=== PATIENT | female | born 1990 | race African-American/Black ===

== ENCOUNTER 2018-11-08 04:28 | Emergency (ER) | payer BC ==
--- NOTE | 2018-11-08 04:55 | PDOC ---
*Physical Exam - Vital Signs 11/08/18 04:53 Patient seen by the advanced practice provider under my direct supervision. Ancillary testing reviewed as necessary. I agree with plan as outlined by the advanced practice provider. *DC/Admit/Observation/Transfer Diagnosis at time of Disposition: Constipation Qualifiers: Constipation type: unspecified constipation type Qualified Code(s): K59.00 - Constipation, unspecified - Discharge Dispostion Disposition: HOME Condition at time of disposition: Fair - Prescriptions Prescriptions: Magnesium Citrate [Citroma -] 195 ml PO ONCE #1 bottle Polyethylene Glycol 3350 [Miralax 119 gm Btl -] 17 gm PO DAILY #1 bottle - Referrals Referrals: Jerry Dickens DO [Staff Physician] - Call tomorrow - Patient Instructions Printed Discharge Instructions: Constipation Additional Instructions: 1. Increase fluids. 2. High fiber diet. 3. Prune juice. 4. Medications as prescribed 5. Please return to the emergency department with any nausea or vomiting, abdominal distention, abdominal pain, or any other concerns. 6. Please consult with your primary care doctor prior to taking any medications , recommend follow up with GI. - Post Discharge Activity Forms/Work/School Notes: Back to Work
[2018-11-08] MEDS ORDERED: SODIUM PHOSPHATE/NA BIPHOS 133 ML ENEMA PR ONE (05:10)
[2018-11-08 05:13] VITALS: TEMP 97.7; BMI 18.9
--- NOTE | 2018-11-08 05:25 | PDOC ---
History of Present Illness - General Chief Complaint: Constipation Stated Complaint: ABDOMINAL PAIN Time Seen by Provider: 11/08/18 04:48 History Source: Patient - History of Present Illness Initial Comments: 11/08/18 05:07 28 year old female with history of constipation c/o lower abdominal pain and no BM x 2 -3 weeks. patient started taking Miralax at home with no bowel movement. denies fever/ chills, anorexia, nausea/ vomiting, urinary symptoms. Past History - Past Medical History Allergies/Adverse Reactions: Allergies Allergy/AdvReac Type Severity Reaction Status Date / Time No Known Allergies Allergy Verified 11/08/18 05:35 Home Medications: Ambulatory Orders Magnesium Citrate [Citroma -] 195 ml PO ONCE #1 bottle 11/08/18 Polyethylene Glycol 3350 [Miralax 119 gm Btl -] 17 gm PO DAILY #1 bottle Review of Systems - Review of Systems Able to Perform ROS?: Yes Is the patient limited [place] proficient: No Constitutional: No: Symptoms Reported, See HPI, Chills, Diaphoresis, Fever, Loss of Appetite, Malaise, Night Sweats, Weakness, Weight Stable, Unintentional Wgt. Loss, Unexplained wgt Loss, Other ABD/GI: Yes: Constipated, Abdominal cramping. No: Symptoms Reported, See HPI, Abdominal Distended, Abd. Pain w/ defecation, Blood Streaked Bowels, Diarrhea, Difficulty Swallowing, Nausea, Poor Appetite, Poor Fluid Intake, Rectal Bleeding , Vomiting, Indigestion, Tarry Stools, Other : No: Symptoms Reported, See HPI, Burning, Dysuria, Discharge, Frequency, Flank Pain, Hematuria, Incontinence, Pain, Urgency, Testicular Mass, Testicular Swelling, Lesions, Testicular Pain, Other Integumentary: No: Symptoms Reported, See HPI, Bruising, Change in Color, Change in Hair/Nails, Dryness, Erythema, Flushing, Lesions, Lumps, Pallor, Pruritus, Rash, Sweating, Other *Physical Exam - Vital Signs 11/08/18 05:53 Last Vital Signs Temp Pulse Resp BP Pulse Ox 97.7 F 82 18 116/84 98 11/08/18 04:28 11/08/18 04:28 11/08/18 04:28 11/08/18 04:28 11/08/18 04:28 - Physical Exam General Appearance: Yes: Appropriately Dressed Respiratory/Chest: positive: Lungs Clear, Normal Breath Sounds Gastrointestinal/Abdominal: positive: Normal Bowel Sounds (has generalized tenderness RLQ> LLQ), Soft Musculoskeletal: positive: Normal Inspection Extremity: positive: Normal Capillary Refill, Normal Inspection, Normal Range of Motion Integumentary: positive: Normal Color, Dry, Warm Neurologic: positive: Fully Oriented, Alert, Normal Mood/Affect Progress Note - Progress Note Progress Note: A: constipation P: fleet enema Medical Decision Making - Medical Decision Making 11/08/18 06:31 patient had a large BM. no abdominal pain on palpation. patient c/o rectal pain from defecation. no rectal bleeding. *DC/Admit/Observation/Transfer Diagnosis at time of Disposition: Constipation Qualifiers: Constipation type: unspecified constipation type Qualified Code(s): K59.00 - Constipation, unspecified - Discharge Dispostion Disposition: HOME Condition at time of disposition: Fair - Prescriptions Prescriptions: Magnesium Citrate [Citroma -] 195 ml PO ONCE #1 bottle Polyethylene Glycol 3350 [Miralax 119 gm Btl -] 17 gm PO DAILY #1 bottle - Referrals Referrals: Jerry Dickens DO [Staff Physician] - Call tomorrow - Patient Instructions Printed Discharge Instructions: Constipation Additional Instructions: 1. Increase fluids. 2. High fiber diet. 3. Prune juice. 4. Medications as prescribed 5. Please return to the emergency department with any nausea or vomiting, abdominal distention, abdominal pain, or any other concerns. 6. Please consult with your primary care doctor prior to taking any medications , recommend follow up with GI. - Post Discharge Activity Forms/Work/School Notes: Back to Work
[2018-11-08 07:26] VITALS: BP 120/74; PULSE 67
== END 2018-11-08 07:10 | disposition home or self-care (01) ==
LOC: JER 04:28
DX: K59.00 Constipation, unspecified (principal)
CPT/HCPCS: 99281-25

== ENCOUNTER 2019-02-11 07:01 | Emergency (ER) | payer BC ==
[2019-02-11 07:20] VITALS: BMI 18.8
--- NOTE | 2019-02-11 07:41 | PDOC ---
History of Present Illness - General Chief Complaint: Pain, Acute Stated Complaint: RIGHT SIDE PAIN Time Seen by Provider: 02/11/19 07:35 - History of Present Illness Initial Comments: 02/11/19 07:42 28yo female with pmhx of constipation - on PRN miralax presents c/o R flank pain. Pt states pain started yesterday morning. States pain has been constant. States she had a bm yesterday that was normal. No n/v. States urinary freq and urgency. No dysuria or hematuria. Pt states she ate and drank normally. Pt states pain down R flank- from upper back to her RLQ. No groin pain. No vaginal bleeding or discharge. Last menstrual cycle was 1 week ago. Pt ambulatory with a steady gait. Pt arrives from home with her sister for evaluation. Pt denies all f/c. No cp/sob. No cough. No rashes. No other complaints. PMHx: constipatin PSHx: denies All: denies Meds: PRN Miralax Past History - Past Medical History Allergies/Adverse Reactions: Allergies Allergy/AdvReac Type Severity Reaction Status Date / Time No Known Allergies Allergy Verified 02/11/19 07:20 Home Medications: Ambulatory Orders Polyethylene Glycol 3350 [Miralax 119 gm Btl -] 17 gm PO DAILY #1 bottle Cephalexin Monohydrate [Keflex -] 500 mg PO BID #14 capsule 02/11/19 COPD: No - Suicide/Smoking/Psychosocial Hx Smoking History: Never smoked Have you smoked in the past 12 months: No Hx Alcohol Use: No Drug/Substance Use Hx: No Review of Systems - Review of Systems Able to Perform ROS?: Yes Is the patient limited [place] proficient: No Constitutional: No: Chills, Fever HEENTM: No: Double Vision, Nose Pain, Nose Congestion, Throat Pain Respiratory: No: Cough, Shortness of Breath Cardiac (ROS): No: Chest Pain ABD/GI: Yes: Other (flank pain). No: Diarrhea, Nausea, Vomiting : Yes: Frequency, Urgency. No: Burning, Dysuria, Discharge, Hematuria Musculoskeletal: No: Back Pain Integumentary: No: Rash Neurological: No: Headache, Numbness, Paresthesia All Other Systems: Reviewed and Negative *Physical Exam - Vital Signs Last Vital Signs Temp Pulse Resp BP Pulse Ox 98.2 F 79 18 108/72 100 02/11/19 07:18 02/11/19 07:18 02/11/19 07:18 02/11/19 07:18 02/11/19 07:18 - Physical Exam General Appearance: Yes: Nourished, Appropriately Dressed. No: Apparent Distress HEENT: positive: EOMI, Normal Voice Neck: positive: Supple Respiratory/Chest: positive: Lungs Clear, Normal Breath Sounds. negative: Respiratory Distress Cardiovascular: positive: Regular Rhythm, Regular Rate, S1, S2. negative: Edema Gastrointestinal/Abdominal: positive: Normal Bowel Sounds, Tender (RUQ, RLQ, R CVA), Flat, Soft. negative: Guarding, Rebound, Tenderness Musculoskeletal: positive: CVA Tenderness, CVA Tenderness (R). negative: CVA Tenderness (L), Vertebral Tenderness Integumentary: positive: Normal Color, Dry, Warm. negative: Rash Neurologic: positive: Fully Oriented, Alert, Normal Mood/Affect ED Treatment Course - LABORATORY CBC & Chemistry Diagram: 02/11/19 08:25 02/11/19 08:25 Medical Decision Making - Medical Decision Making 02/11/19 07:48 a/p: 28yo female with urinary urgency, freq, and flank pain -will send labs, ua -concern for UTI vs renal stone vs gallstone -will check labs -will give ivf hydration and tylenol for pain -will monitor and reassess -pt is nontoxic in appearance 02/11/19 09:05 pt with uti and R flank pain, blood in urine will r/o renal colic with ct without contrast upreg neg labs reviewed renal function, cbc normal 02/11/19 10:35 pt without renal stone will treat for uti with abx stable for dc to home, discussed labs and imaging results 02/11/19 10:42 pt states feeling better will send rx for abx discussed all reasons to return to the ED answered all questions discussed follow up with PMD *DC/Admit/Observation/Transfer Diagnosis at time of Disposition: UTI (urinary tract infection) - Discharge Dispostion Disposition: HOME Condition at time of disposition: Stable Decision to Admit order: No - Prescriptions Prescriptions: Cephalexin Monohydrate [Keflex -] 500 mg PO BID #14 capsule - Referrals Referrals: Kev Archibald MD [Staff Physician] - - Patient Instructions Printed Discharge Instructions: DI for Urinary Tract Infection (UTI) Additional Instructions: Please take all antibiotics as prescribed. Please take tylenol or motrin as needed for pain. Please return to the ED with any further concerns or complaints. Please make an appointment to follow up with your PMD on wednesday for a re-evaluation. - Post Discharge Activity
[2019-02-11] MEDS ORDERED: SODIUM CHLORIDE 0.9% 1000 ML INFUS.BAG IV ONE (07:42)
[2019-02-11] MEDS ORDERED: ACETAMINOPHEN 1000 MG/100 ML VIAL (NON FORMULARY) IVPB ONE (07:42)
[2019-02-11] MEDS ORDERED: ACETAMINOPHEN INJECTION 100 ML IVPB ONE (08:09)
[2019-02-11 08:43] LABS: HCG,QUALITATIVE URINE Negative
[2019-02-11 08:43] LABS: BASO % 0.8 % (0-2.0); EOS % 0.8 % (0-4.5); HEMATOCRIT 36.2 % (32.4-45.2); HEMOGLOBIN 11.7 GM/dL (10.7-15.3); LYMPH % 21.9 % (8-40); MCH 28.1 pg (25.7-33.7); MCHC 32.3 g/dl (32.0-36.0); MEAN CELL VOLUME 86.9 fl (80-96); MEAN PLT VOLUME 9.2 fl (7.5-11.1); MONO % 10.1 % (3.8-10.2); NEUT % 66.4 % (42.8-82.8); PLATELET COUNT 246 K/MM3 (134-434); RBC 4.17 M/mm3 (3.60-5.2); RDW 13.4 % (11.6-15.6); WHITE BLOOD COUNT 6.5 K/mm3 (4.0-10.0)
[2019-02-11 08:44] LABS: EPI CELLS 1.1 /HPF (0-5/HPF); HYALINE CASTS 5 /lpf (0-8); URINE APPEARANCE CLOUDY; URINE BACTERIA 6008.7 /hpf (NEGATIVE); URINE BILIRUBIN NEGATIVE (NEGATIVE); URINE COLOR YELLOW; URINE GLUCOSE (UA) NEGATIVE (NEGATIVE); URINE KETONE NEGATIVE (NEGATIVE); URINE LEUK ESTERASE 3+ (NEGATIVE); URINE NITRITE POSITIVE (NEGATIVE); URINE PROTEIN 1+ (NEGATIVE); URINE UROBILINOGEN 0.2 mg/dL (0.2-1.0); URINE WBC 212 /hpf (0-5)
[2019-02-11 09:04] LABS: ALBUMIN 3.7 g/dl (3.4-5.0); BILIRUBIN,TOTAL 0.4 mg/dL (0.2-1); BLOOD UREA NITROGEN 13.3 mg/dL (7-18); CALCIUM 9.1 mg/dL (8.5-10.1); CREATININE 0.9 mg/dL (0.55-1.3); POTASSIUM 3.9 mmol/L (3.5-5.1); TOT PROT 7.4 g/dl (6.4-8.2)
[2019-02-11] MEDS ORDERED: CEFTRIAXONE 1 GM in DEXTROSE 5%-WATER - 100 ML IVPB ONE (09:04)
[2019-02-11] MEDS ORDERED: CEFTRIAXONE 1 GM/50 ML BAG ONE (09:19)
[2019-02-11] MEDS ORDERED: IBUPROFEN 600 MG TABLET (FP) PO ONE ×2 (10:42→10:57)
[2019-02-11 11:08] VITALS: BP 105/75; PULSE 77; TEMP 98
[2019-02-11 11:13] LABS: URINE RBC 21.7 /hpf (0-4); YEAST NOT PRESENT (NEGATIVE)
== END 2019-02-11 11:00 | disposition home or self-care (01) ==
LOC: JER 07:01
PROC: 3E03329 Introduction of Other Anti-infective into Peripheral Vein, Percutaneous Approach (ICD-10-PCS; principal; 2019-02-11)
PROC: 3E033NZ Introduction of Analgesics, Hypnotics, Sedatives into Peripheral Vein, Percutaneous Approach (ICD-10-PCS; 2019-02-11)
PROC: 3E0337Z Introduction of Electrolytic and Water Balance Substance into Peripheral Vein, Percutaneous Approach (ICD-10-PCS; 2019-02-11)
DX: N39.0 Urinary tract infection, site not specified (principal)
CPT/HCPCS: 36415; 74176-TC; 80053; 81003; 83690; 84703; 85025; 99284-25; J0131; J7030

== ENCOUNTER 2021-03-11 15:28 | Emergency (ER) | payer BC, OTHER ==
[2021-03-11 15:56] VITALS: BP 118/76; PULSE 68; TEMP 99; BMI 20.9
[2021-03-11] MEDS ORDERED: TETANUS AND DIPHTHERIA TOXOID 0.5 ML DISP.SYRIN IM ONE (16:10)
[2021-03-11] MEDS ORDERED: DIPHTH,PERTUSS(ACELL),TET 0.5 ML DISP.SYRIN IM ONE (16:15)
[2021-03-11 17:33] LABS: CALCIUM 9.4 mg/dL (8.5-10.1)
[2021-03-11 17:34] LABS: ALBUMIN 4.2 g/dl (3.4-5.0); BLOOD UREA NITROGEN 9.5 mg/dL (7-18)
[2021-03-11 17:37] LABS: CREATININE 0.8 mg/dL (0.55-1.3)
[2021-03-11 17:39] LABS: BILIRUBIN,TOTAL 0.4 mg/dL (0.2-1)
[2021-03-11 18:18] LABS: HIV INTERPRETATION NEGATIVE (NEGATIVE)
== END 2021-03-11 16:28 | disposition home or self-care (01) ==
LOC: JER 15:28
PROC: 3E0234Z Introduction of Serum, Toxoid and Vaccine into Muscle, Percutaneous Approach (ICD-10-PCS; principal; 2021-03-11)
DX: S61.240A Puncture wound with foreign body of right index finger without damage to nail, initial encounter (principal); Z77.21 Contact with and (suspected) exposure to potentially hazardous body fluids; W46.0XXA Contact with hypodermic needle, initial encounter; Y92.531 Health care provider office as the place of occurrence of the external cause
CPT/HCPCS: 36415; 80053; 86317; 86704; 86803; 87340; 87389; 99284-25